=== PATIENT | male | born 2000 ===

== ENCOUNTER 2019-08-29 10:44 | Emergency (ER) | payer BC ==
[~2019-08-29] VITALS: Ht 175.3 cm; Wt 90.7 kg
[~2019-08-29 10:44] MED LIST: HYDACE5 PO; RXHYD5325 PO
== END 2019-08-30 11:36 | disposition home or self-care (01) ==
LOC: ER 10:44
DX: R45.851 Suicidal ideations (principal)
CPT/HCPCS: 99284

== ENCOUNTER → 2022-04-15 | Outpatient (CLI) | payer BC ==
[2022-04-16 08:10] LABS: HBSAG SCREEN Negative (Negative); HCV ANTIBODY <0.1 (0.0-0.9); HIV AB/P24 AG SCREEN Non Reactive (Non Reactive)
== END ==
LOC: LAB 14:20 → LAB SHORT 14:20
PROVIDERS: Registered Nurse Community Health
DX: Z11.3 Encounter for screening for infections with a predominantly sexual mode of transmission (principal); Z20.2 Contact with and (suspected) exposure to infections with a predominantly sexual mode of transmission
CPT/HCPCS: 86592; 86803; 87340; 87389